=== PATIENT | male | born 1975 | race Caucasian/White ===

== ENCOUNTER 2025-01-06 12:07 | Emergency (ER) | payer MEDICAID, SELFPAY ==
[2025-01-06 11:53] VITALS: BP 102/68; PULSE 76; RESP 18; TEMP 36.6; O2SAT 97
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
== END 2025-01-06 15:38 | disposition home or self-care (01) ==
PROVIDERS: Emergency Provider Nurse Practitioner Family
DX: M79.671 Pain in right foot (principal); M79.672 Pain in left foot; Z59.00 Homelessness unspecified
CPT/HCPCS: 99281; 99282